=== PATIENT | female | born 1965 | race Caucasian/White ===

== ENCOUNTER 2016-11-22 16:47 | Emergency (ER) | payer BC | END 2016-11-22 17:47 | disposition home or self-care (01) | LOC: ER 16:47 | DX: S52.122A Displaced fracture of head of left radius, initial encounter for closed fracture (principal); Z23 Encounter for immunization; W17.89XA Other fall from one level to another, initial encounter; Y93.01 Activity, walking, marching and hiking | CPT/HCPCS: 90471 ==